=== PATIENT | female | born 1945 | race Caucasian/White ===

== ENCOUNTER 2016-05-06 08:39 | Observation (INO) | payer OTHER ==
[~2016-05-06 08:39] MED LIST: DEXAMETHASONE 10 MG/ML VIAL IVP ONE
[2016-05-06] MEDS ORDERED: LIDO/EPI 1% **Not for Epidural 20 ML MDV ONE (08:52)
[2016-05-06] MEDS ORDERED: LIDOCAINE 1% 5 ML SDV ONE (09:19)
[2016-05-06] MEDS ORDERED: fentaNYL 100 MCG/2 ML INJ ONE ×2 (09:50→11:43)
[2016-05-06] MEDS ORDERED: PROPOFOL 200 MG/20 ML VIAL ONE ×2 (09:51→10:50)
[2016-05-06] MEDS ORDERED: MIDAZOLAM 2 MG/2 ML VIAL ONE (09:55)
[2016-05-06] MEDS ORDERED: LIDOCAINE 1% 5 ML SDV ID PRN (09:59)
[2016-05-06] MEDS ORDERED: LR 1,000 ML IV ONE (09:59)
[2016-05-06] MEDS ORDERED: ACETAMINOPHEN 500 MG TAB PO ONE (10:00)
[2016-05-06] MEDS ORDERED: ONDANSETRON 4 MG/2 ML VIAL IVP PRN (10:07)
[2016-05-06] MEDS ORDERED: OXYCODONE/APAP 5/325 TAB PO PRN (10:07)
[2016-05-06] MEDS ORDERED: D5W 1/2 NS W/ 20 KCl/L 1,000 ML IV SCH (10:15)
[2016-05-06] MEDS ORDERED: ceFAZolin 2 GM/DEXTROSE 100 ML IV ONE (10:30)
[2016-05-06] MEDS ORDERED: DEXAMETHASONE 4 MG/ML VIAL ONE ×4 (10:46→11:00)
[2016-05-06] MEDS ORDERED: PHENYLEPHRINE HCL 100 MCG/ML SYR ONE (10:59)
[2016-05-06] MEDS ORDERED: SUCCINYLCHOLINE CHLORIDE*ANESTHESIA ONLY*200 MG/10 ML SYR IVP ONE (10:59)
[2016-05-06] MEDS ORDERED: ONDANSETRON 4 MG/2 ML VIAL ONE ×2 (11:00)
[2016-05-06] MEDS ORDERED: HYDROmorphONE/DILAUDID 1 MG/ML SYR ONE (12:01)
[2016-05-06] MEDS ORDERED: PROMETHAZINE HCL 25 MG/ML INJ ONE (12:04)
--- NOTE | 2016-05-06 12:39 | GOP ---
DATE OF OPERATION: 05/06/2016 SURGEON: Donovan Barrios MD [employer] TENDER: YESIKA Gregg. ANESTHESIA: General endotracheal. PREOPERATIVE DIAGNOSIS: Mass left submandibular gland. POSTOPERATIVE DIAGNOSIS: Mass left submandibular gland. PROCEDURE PERFORMED: Procedure planned and performed was left submandibular gland excision. FINDINGS: Firm, inflamed left submandibular gland. ESTIMATED BLOOD LOSS: 30 mL. DESCRIPTION OF PROCEDURE: Patient was placed on the operating table in the supine position. After induction of adequate general anesthesia, a shoulder roll was placed beneath the patient's shoulders to extend the neck. The head was turned toward the right exposing the left neck. Sterile prep and drape for left submandibular gland excision was performed. This prep was carried to such a level t hat the lower lip could be fully visualized. Infiltration of the planned incision approximately 2 f ingerbreadths inferior to the body of the mandible was performed utilizing 1% lidocaine with 100,000 parts of epinephrine. Adequate length of time was given for this agent to act. An incision was th en planned and created in the naturally occurring skin crease approximately 2 fingerbreadths inferio r to the mandibular body on the left. The incision extended for approximately 6 cm. The incision w as then carried down through the subcutaneous tissues and through the platysma muscle. Once through the platysma muscle, stimulation with the [place] stimulator was performed and the marginal mandibul ar nerve was noted to be well cephalad to the operative field. Dissection then proceeded deeply and slightly superiorly until the inferior margin of the submandibular gland was encountered. Once thi s had been completed, circumferential dissection of the submandibular gland was performed. The faci al vein was noted to be present overlying the gland. This was clamped, cut and tied with 2-0 silk s utures. Further circumferential dissection of the gland was performed. It was noted that extensive inflammation and oozing was present. The mylohyoid muscle was identified and reflected free from t he anterior aspect of the submandibular gland. Dissection deep to the mylohyoid allowed for visuali zation of the hypoglossal nerve as well as the lingual nerve. The lingual ganglion was treated with the bipolar electrocautery and divided. A small branch of the facial artery was encountered furthe r cephalad in the field and this was clamped, cut and tied with 2-0 silk ties. The submandibular du ct was encountered and this was clamped, cut and tied with 2-0 silk tie distally. After circumferen tial dissection of the gland had been completed, the gland was delivered, the wound was examined, th e integrity of the lingual and hypoglossal nerve was again reassured, a portion of the tied facial a rtery was noted to be pulsing quite vigorously and this was re-tied to be certain that no bleeding w ould occur postoperatively. A 2-0 silk suture was placed on the facial artery stump. At this point , the wound was cleansed. A 10-[place] Juanjo-Egan drain was inserted into the wound and sutured i nto place with a 2-0 silk suture ligature. Deep layer closure of the wound was performed utilizing interrupted 3-0 Vicryl sutures. The skin was closed with a running locked 5-0 Prolene suture. The neck wound was then cleansed. A sterile Kumar's pressure dressing was applied. The patient was th en awakened and transferred to the postanesthesia recovery unit in stable condition. FLUID REPLACEMENT: 1200 mL. COMPLICATIONS: None. /[id number]/MODL
[2016-05-06] MEDS ORDERED: DEXAMETHASONE 4 MG/ML VIAL IVP SCH (14:00)
[2016-05-06] MEDS ORDERED: BACITRACIN OINTMENT 1 PACKET TP ONE (14:49)
[2016-05-06 15:07] VITALS: O2SAT 97
--- NOTE | 2016-05-06 16:59 | SOAPPROG ---
SOAP Progress Note Assessment/Plan: Assessment: Plan: Objective: Vital Signs Temp Pulse Resp BP Pulse Ox 36.0 C 66 16 127/62 H 97 05/06/16 15:06 05/06/16 15:06 05/06/16 15:06 05/06/16 15:06 05/06/16 15:06 05/05/16 05/06/16 05/07/16 05:59 05:59 05:59 Intake Total 1300 Output Total 40 Balance 1260 ICD10 Worksheet Patient Problems: Problems Problem Status Onset Submandibular gland swelling Acute
[2016-05-06 17:07] VITALS: BP 133/86; PULSE 76; RESP 18; TEMP 97.5
--- NOTE | 2016-05-06 17:17 | SOAPPROG ---
SOAP Progress Note Assessment/Plan: pt s/p submandibular gland excision today. Dr. chen went up to check on pt. Pts wants to have her discharged today as he is concerned about insurance coverage for overnight stay in hospital. Pt is doing well. Pain controlled. Dressing in place, drain with bloody serous drainage Plan:Pt s/p exc left submandibular gland. She is stable to go home. She will f/ u in our office tomorrow for drain removal. 05/06/16 17:11 Objective: Vital Signs Temp Pulse Resp BP Pulse Ox 36.4 C 76 18 133/86 H 97 05/06/16 16:00 05/06/16 16:00 05/06/16 16:00 05/06/16 16:00 05/06/16 16:00 05/05/16 05/06/16 05/07/16 05:59 05:59 05:59 Intake Total 1300 Output Total 40 Balance 1260 ICD10 Worksheet Patient Problems: Problems Problem Status Onset Submandibular gland swelling Acute
== END 2016-05-06 18:06 | disposition home or self-care (01) ==
LOC: FPAT 08:39 → F3E 10:07
PROVIDERS: ADMIT Otolaryngology; ATTEND Otolaryngology
PROC: 0CBH0ZZ Excision of Left Submaxillary Gland, Open Approach (ICD-10-PCS; principal; 2016-05-06 10:00)
DX: D37.032 Neoplasm of uncertain behavior of the submandibular salivary glands (principal)
CPT/HCPCS: 42440; J0330; J0690; J1100; J1170; J2250; J2370; J2405; J2550; J2704; J3010

== ENCOUNTER → 2016-06-02 | Outpatient (CLI) | payer OTHER | LOC: BHFA 10:45 | PROVIDERS: ATTEND Internal Medicine Cardiovascular Disease | DX: Z51.11 Encounter for antineoplastic chemotherapy (principal) ==

== ENCOUNTER 2016-06-29 06:03 | Day surgery (SDC) | payer OTHER ==
[~2016-06-29 06:03] MED LIST changes: -DEXAMETHASONE 10 MG/ML VIAL IVP ONE; +ceFAZolin 2 GM/DEXTROSE 100 ML IV ONE
[2016-06-29] MEDS ORDERED: LR 1,000 ML IV ONE (06:36)
[2016-06-29] MEDS ORDERED: LIDOCAINE 1% 5 ML SDV ID PRN (06:36)
[2016-06-29] MEDS ORDERED: BUPIVACAINE 0.5% 30 ML SDV ONE (06:50)
[2016-06-29] MEDS ORDERED: fentaNYL 100 MCG/2 ML INJ ONE ×2 (07:27→08:34)
[2016-06-29] MEDS ORDERED: PROPOFOL/EMULSION 500 MG/50 ML BOTTLE IV ONE (07:27)
[2016-06-29] MEDS ORDERED: MIDAZOLAM 2 MG/2 ML VIAL ONE (07:29)
[2016-06-29] MEDS ORDERED: ONDANSETRON 4 MG/2 ML VIAL ONE (07:48)
[2016-06-29] MEDS ORDERED: LIDOCAINE 2% 5 ML SDV ONE (07:48)
[2016-06-29] MEDS ORDERED: METOCLOPRAMIDE 10 MG/2 ML VIAL ONE (07:48)
--- NOTE | 2016-06-29 08:59 | GOP ---
[f rep st] OPERATIVE REPORT DATE OF OPERATION: 06/29/2016 SURGEON: Veronica Perez MD ANESTHESIA: Dr. Kati Elkins/general. PREOPERATIVE DIAGNOSIS: Non-Hodgkin lymphoma. POSTOPERATIVE DIAGNOSIS: Non-Hodgkin lymphoma. PROCEDURE PERFORMED: Left ultrasound-guided internal jugular port. FINDINGS: Tip at the RA junction. SPECIMENS: None. ESTIMATED BLOOD LOSS: 10 cc. INDICATIONS: The patient is a 71-year-old woman, who has non-Hodgkin lymphoma. She requires a port for chemotherapy. DESCRIPTION OF PROCEDURE: The patient was brought into the operating room, placed supine on the tab le, and general anesthesia was administered. Her bilateral neck and chest were prepped and draped i n the usual sterile fashion. She was placed in the Trendelenburg position. I infiltrated her chest with 10 cc of 0.5% Marcaine. I attempted access on the left subclavian vein, but was unable to get dark return of blood flow. I then used the ultrasound to access the left internal jugular vein wit h dark return of blood flow. I threaded the guidewire and removed the needle. I manipulated the wi re under fluoroscopy, so that it was entering the IVC. I created a pocket to accommodate the port i n the left chest. I tunneled the port up to the insertion site. Under fluoroscopy, I measured the catheter and cut it to size. Using the Seldinger technique, I placed the dilator and sheath over th e wire. I removed the wire and the dilator. The catheter was examined with fluoroscopy. There was no kinking and the tip appeared to be at the RA junction. The port withdrew blood easily and was f lushed with heparin. The pocket was closed with 3-0 Vicryl, followed by 4-0 Monocryl, and the neck incision closed with 4-0 Monocryl. Dermabond applied to both. She was extubated in the operating r oom. Transferred to PACU in stable condition. /[id number]/MODL
== END 2016-06-29 10:05 | disposition home or self-care (01) ==
LOC: FSGY 06:03
PROVIDERS: ATTEND Surgery
PROC: 0JH60XZ Insertion of Tunneled Vascular Access Device into Chest Subcutaneous Tissue and Fascia, Open Approach (ICD-10-PCS; principal; 2016-06-29 07:30)
PROC: 02HV33Z Insertion of Infusion Device into Superior Vena Cava, Percutaneous Approach (ICD-10-PCS; principal; 2016-06-29 07:30)
DX: Z45.2 Encounter for adjustment and management of vascular access device (principal); C83.31 Diffuse large B-cell lymphoma, lymph nodes of head, face, and neck; E03.9 Hypothyroidism, unspecified; Z87.891 Personal history of nicotine dependence
CPT/HCPCS: C1788; J0690; J1642; J2250; J2405; J2704; J2765; J3010

== ENCOUNTER → 2016-12-15 | Outpatient (CLI) | payer OTHER | LOC: BMCIMAGING 12:44 | PROVIDERS: ATTEND Internal Medicine | DX: Z12.31 Encounter for screening mammogram for malignant neoplasm of breast (principal); Z85.72 Personal history of non-Hodgkin lymphomas | CPT/HCPCS: G0202 ==

== ENCOUNTER → 2017-12-16 | Outpatient (CLI) | payer OTHER | LOC: BMCIMAGING 14:53 | PROVIDERS: ATTEND Internal Medicine | DX: Z12.31 Encounter for screening mammogram for malignant neoplasm of breast (principal) ==

== ENCOUNTER → 2017-12-21 | Outpatient (CLI) | payer OTHER | LOC: BMCIMAGING 14:29 | PROVIDERS: ATTEND Internal Medicine | DX: Z13.820 Encounter for screening for osteoporosis (principal); M85.89 Other specified disorders of bone density and structure, multiple sites ==

== ENCOUNTER → 2018-01-05 | Outpatient (CLI) | payer OTHER ==
[~2018-01-05] MED LIST changes: +BACITRACIN 50,000 UNITS/10 ML SYR IRR ONE; +BACITRACIN ZINC 14.2 GM OINTTUBE TP ONE; +BUPIVACAINE 0.5% 30 ML SDV ONE; +GENTAMICIN SULFATE 80 MG/2 ML VIAL ONE; +METHYLENE BLUE 0.5% 50 MG/10 ML AMP ONE; +THROMBIN (BOVINE) 20,000 UNIT SPRAY TP ONE; +ceFAZolin 1 GM/5 ML SYR ONE; -ceFAZolin 2 GM/DEXTROSE 100 ML IV ONE
== END ==
LOC: FIMAGING 14:36
PROVIDERS: ATTEND Internal Medicine Critical Care Medicine
DX: R59.0 Localized enlarged lymph nodes (principal); R91.1 Solitary pulmonary nodule; N20.0 Calculus of kidney; M35.00 Sjogren syndrome, unspecified; I27.29 Other secondary pulmonary hypertension
CPT/HCPCS: J1580; Q9968

== ENCOUNTER → 2018-01-20 | Outpatient (CLI) | payer OTHER | LOC: BHFA 14:00 | PROVIDERS: ATTEND Internal Medicine Cardiovascular Disease | DX: R06.02 Shortness of breath (principal) ==